=== PATIENT | female | born 1950 | race Caucasian/White ===

== ENCOUNTER 2017-11-24 07:30 | Day surgery (SDC) | payer MEDICARE, OTHER ==
[~2017-11-24] VITALS: Ht 160 cm; Wt 65.9 kg
[~2017-11-24 07:30] MED LIST: ASPI81CH; CALCA500CH PO; CHOL10002; CHOL10002 PO; CYAN1000 PO; DHEA; DHEA PO; ENOX40I SC; HRT BASE; HRT TD; HYDMOR2 PO; MONT10T PO; MULVITMIND PO; NAPR220; OMEP20ER; Omeprazole20 M1 PO; PROM25 PO; TELM20 PO; TRAZ50; VALS80 PO; VIT1CAPS12 PO; [UNRECOGNIZED DRUG - OTHER] PO
[2017-11-24] MEDS ORDERED: LOSA25 (08:04)
[2017-11-24] MEDS ORDERED: ASPI81CH (08:05)
[2017-11-24] MEDS ORDERED: MONT5TCH (08:05)
== END 2017-11-24 10:32 | disposition home or self-care (01) ==
LOC: ORSCSDS 07:30
PROVIDERS: Orthopaedic Surgery
PROC: 0LN70ZZ Release Right Hand Tendon, Open Approach (ICD-10-PCS; principal; 2017-11-24 08:45)
PROC: 01N50ZZ Release Median Nerve, Open Approach (ICD-10-PCS; principal; 2017-11-24 08:45)
DX: M65.311 Trigger thumb, right thumb (principal); G56.01 Carpal tunnel syndrome, right upper limb; I10 Essential (primary) hypertension; Z79.82 Long term (current) use of aspirin; Z79.899 Other long term (current) drug therapy
CPT/HCPCS: J0690; J2250; J3010; J7120

== ENCOUNTER 2021-12-19 08:37 | Day surgery (SDC) | payer MEDICARE, OTHER ==
[~2021-12-19] VITALS: Ht 160 cm; Wt 61.3 kg
[~2021-12-19 08:37] MED LIST changes: +ASPI81CH PO; +Carisoprodol350 MG PO; +GABA100 PO; +LOSA25 PO; +MONT5TCH PO; +NAPR500 PO; +Norvasc2.5 MG PO; +TRAZ50 PO
--- NOTE | 2021-12-19 10:58 | NUR ---
12/19/21 1058 [address] Tripathi 1G ARTURO STARTED IN PREOP AT 0948
--- NOTE | 2021-12-19 19:31 | NUR ---
SHIFT SUMMARY PATIENT NEW ADMIT TO UNIT FROM PACU POST OP DAY [address] MCCLELLAND. ALERT AND ORIENTED. SPINAL AND LOCAL BLOCK IN EFFECT ON ADMIT. WORE OFF THROUGH AFTERNOON. PATIENT ABLE TO AMBULATE WITH PHYSICAL THERAPY AND VOID. TOLERATING REGULAR DIET AND LIQUIDS. MEDICATED FOR PAIN PER EMAR. RIGHT HIP INCISIONS WITH GAUZE AND COMPRESSION TAPE C/D/I. SPOUSE ATTENTIVE IN ROOM. PLAN TO DISCHARGE HOME TOMORROW 12/20/21 AFTER CLEARING PHYSICAL THERAPY.
--- NOTE | 2021-12-20 04:34 | NUR ---
SUMMARY NO NEW ISSUES NOTED. PAIN MANAGED WELL. PT HAS BEEN AMBULATORY AND VOIDING. CALL LIGHT IN REACH AND SLEEPING WELL.
[2021-12-20 06:28] LABS: BASOPHILS ABSOLUTE AUTO 0.04 K/mm3 (0.00-0.23); BASOPHILS PERCENT AUTO 0 % (0-2); EOSINOPHILS ABSOLUTE AUTO 0.02 K/mm3 (0.00-0.68); EOSINOPHILS PERCENT AUTO 0 % (0-6); Hematocrit 29.1 % (33.0-51.0); Hemoglobin 9.5 g/dL (11.5-16.0); IMMATURE GRAN ABSOLUTE AUTO 0.04 K/mm3 (0.00-0.10); IMMATURE GRAN PERCENT AUTO 0 % (0-1); LYMPHOCYTES ABSOLUTE AUTO 1.75 K/mm3 (0.84-5.20); LYMPHOCYTES PERCENT AUTO 17 % (21-46); MONOCYTES ABSOLUTE AUTO 0.96 K/mm3 (0.16-1.47); MONOCYTES PERCENT AUTO 10 % (4-13); Mean Corpuscular HGB 29.1 pg (26.0-34.0); Mean Corpuscular HGB Conc 32.6 g/dL (31.5-36.5); Mean Corpuscular Volume 89 fL (80-100); NEUTROPHILS ABSOLUTE AUTO 7.22 K/mm3 (1.96-9.15); NEUTROPHILS PERCENT AUTO 72 % (41-73); Platelet Count 308 K/mm3 (150-400); RDW Coefficient Variation 14.4 % (11.7-14.2); RDW Standard Deviation 46.4 fL (35.1-46.3); Red Blood Cell Count 3.27 M/mm3 (3.80-5.20); White Blood Cell Count 10.03 K/mm3 (4.00-11.30)
[2021-12-20 06:56] LABS: Bun/Creatinine Ratio 24.1 (12.0-20.0); Calcium, Blood 8.5 mg/dL (8.5-10.1); Creatinine, Blood 0.58 mg/dL (0.40-1.00); Potassium, Blood 3.9 mmol/L (3.5-5.5)
[2021-12-20] MEDS ORDERED: PROM25 PO (09:45)
[2021-12-20] MEDS ORDERED: Norco 7.5-3251 EACH PO (09:46)
--- NOTE | 2021-12-20 10:27 | NUR ---
1000 discharge instructions reviewed with patient and patient in agreement with plan to discharge home. pt states she has nausea meds at home and does not want phenergan rx sent to pharmacy. pt ivone po food and fluids without nausea. ambulating with standby assist and walker. dressings supplied to patient for home use. voiding clear yellow uring. pt reports pain level of 0-1/10. pt waiting for to arrive to take her home
--- NOTE | 2021-12-20 11:42 | NUR ---
1130 DISCHARGED TO HOME WITH
== END 2021-12-20 11:30 | disposition home or self-care (01) ==
LOC: ORSCMMR 08:37 → ORD 11:00 → ORSCMMR 11:00 → SURS 13:09 → ORSCMMR 12-20 11:30
PROVIDERS: Orthopaedic Surgery
PROC: 0SR90JA Replacement of Right Hip Joint with Synthetic Substitute, Uncemented, Open Approach (ICD-10-PCS; principal; 2021-12-20)
DX: M16.11 Unilateral primary osteoarthritis, right hip (principal); I10 Essential (primary) hypertension; K21.9 Gastro-esophageal reflux disease without esophagitis; Z79.82 Long term (current) use of aspirin; Z79.899 Other long term (current) drug therapy
CPT/HCPCS: 36415; 72170; 80048; 83735; 85025; 97110; 97116; 97162; 97165; 97530; 97535; A9270; C1713; C1776; J0171; J0690; J0735; J1885; J2250; J2704; J2795; J3010; J3370; J7120

== ENCOUNTER 2021-12-20 12:21 | Emergency (ER) | payer MEDICARE, OTHER ==
[~2021-12-20] VITALS: Ht 160 cm; Wt 61.2 kg
[~2021-12-20 12:21] MED LIST changes: +Norco 7.5-3251 EACH PO
[2021-12-20 12:48] LABS: BASOPHILS ABSOLUTE AUTO 0.03 K/mm3 (0.00-0.23); BASOPHILS PERCENT AUTO 1 % (0-2); EOSINOPHILS ABSOLUTE AUTO 0.13 K/mm3 (0.00-0.68); EOSINOPHILS PERCENT AUTO 2 % (0-6); Hematocrit 27.4 % (33.0-51.0); Hemoglobin 8.9 g/dL (11.5-16.0); IMMATURE GRAN ABSOLUTE AUTO 0.02 K/mm3 (0.00-0.10); IMMATURE GRAN PERCENT AUTO 0 % (0-1); LYMPHOCYTES ABSOLUTE AUTO 1.21 K/mm3 (0.84-5.20); LYMPHOCYTES PERCENT AUTO 18 % (21-46); MONOCYTES PERCENT AUTO 2 % (4-13); Mean Corpuscular HGB 29.1 pg (26.0-34.0); Mean Corpuscular HGB Conc 32.5 g/dL (31.5-36.5); Mean Corpuscular Volume 90 fL (80-100); Mean Platelet Volume 10.3 fL (9.1-12.4); NEUTROPHILS ABSOLUTE AUTO 5.11 K/mm3 (1.96-9.15); NEUTROPHILS PERCENT AUTO 77 % (41-73); Platelet Count 284 K/mm3 (150-400); RDW Coefficient Variation 14.6 % (11.7-14.2); RDW Standard Deviation 46.4 fL (35.1-46.3); Red Blood Cell Count 3.06 M/mm3 (3.80-5.20)
[2021-12-20 13:07] LABS: Albumin, Blood 2.8 g/dL (3.4-5.0); Albumin/Globulin Ratio 1.1 (0.8-1.8); Bilirubin, Total 0.4 mg/dL (0.1-1.0); Bun/Creatinine Ratio 21.5 (12.0-20.0); Calcium, Blood 8.4 mg/dL (8.5-10.1); Creatinine, Blood 0.65 mg/dL (0.40-1.00); Globulin, Blood 2.5 g/dL (2.2-4.0); Potassium, Blood 3.4 mmol/L (3.5-5.5); Total Protein, Blood 5.3 g/dL (6.4-8.2)
== END 2021-12-20 16:22 | disposition home or self-care (01) ==
LOC: ER 12:21
PROVIDERS: Emergency Medicine
DX: D64.9 Anemia, unspecified (principal); R55 Syncope and collapse; I10 Essential (primary) hypertension; Z88.1 Allergy status to other antibiotic agents; Z79.899 Other long term (current) drug therapy; Z79.82 Long term (current) use of aspirin
CPT/HCPCS: 36415; 71045; 80053; 83880; 84484; 85025; 93005; 93010

== ENCOUNTER 2024-03-16 02:14 | Observation (INO) | payer MEDICARE, OTHER ==
[~2024-03-16] VITALS: Ht 160 cm; Wt 68.0 kg
[2024-03-16 02:35] LABS: BASOPHILS PERCENT AUTO 1 % (0-2); EOSINOPHILS ABSOLUTE AUTO 0.22 K/mm3 (0.00-0.68); EOSINOPHILS PERCENT AUTO 3 % (0-6); Hematocrit 41.3 % (33.0-51.0); IMMATURE GRAN ABSOLUTE AUTO 0.02 K/mm3 (0.00-0.10); IMMATURE GRAN PERCENT AUTO 0 % (0-1); LYMPHOCYTES ABSOLUTE AUTO 2.21 K/mm3 (0.84-5.20); LYMPHOCYTES PERCENT AUTO 27 % (21-46); MONOCYTES ABSOLUTE AUTO 0.75 K/mm3 (0.16-1.47); MONOCYTES PERCENT AUTO 9 % (4-13); Mean Corpuscular HGB 30.6 pg (26.0-34.0); Mean Corpuscular HGB Conc 33.9 g/dL (31.5-36.5); Mean Corpuscular Volume 90 fL (80-100); Mean Platelet Volume 10.7 fL (9.1-12.4); NEUTROPHILS ABSOLUTE AUTO 5.04 K/mm3 (1.96-9.15); NEUTROPHILS PERCENT AUTO 61 % (41-73); Platelet Count 301 K/mm3 (150-400); Red Blood Cell Count 4.57 M/mm3 (3.80-5.20); White Blood Cell Count 8.34 K/mm3 (4.00-11.30)
[2024-03-16] MEDS ORDERED: Pantoprazole Sodium 40 MG Injection IV ONE (02:45)
[2024-03-16] MEDS ORDERED: NS 1,000 ML IV SCH (02:45)
[2024-03-16] MEDS ORDERED: Lidocaine 2% Viscous Soln 15 ML UDC PO ONE (02:50)
[2024-03-16] MEDS ORDERED: Ondansetron HCl 2 MG / ML 2ML Vial IV ONE (02:50)
[2024-03-16] MEDS ORDERED: Mag Hydrox/AL Hydrox/Simeth 30 ML UDC PO ONE (02:50)
[2024-03-16 02:53] LABS: Alanine Aminotransfer (ALT/SGP 63 U/L (12-78); Albumin, Blood 3.6 g/dL (3.4-5.0); Albumin/Globulin Ratio 1.2 (0.8-1.8); Alk Phos 85 U/L (50-136); Anion Gap 11 mmol/L (3-11); Aspartate Aminotrans (AST/SGOT 34 U/L (12-37); Bilirubin, Total 0.8 mg/dL (0.1-1.0); Blood Urea Nitrogen 21 mg/dL (8-24); Bun/Creatinine Ratio 34.5 (12.0-20.0); CO2, Blood 25 mmol/L (21-32); Calcium, Blood 9.4 mg/dL (8.5-10.1); Chloride, Blood 107 mmol/L (98-108); Creatinine, Blood 0.61 mg/dL (0.40-1.00); Globulin, Blood 2.9 g/dL (2.2-4.0); Glomerular Filtration Rate 95 (60-); Glucose, Blood 155 mg/dL (70-99); Potassium, Blood 3.9 mmol/L (3.5-5.5); Sodium, Blood 139 mmol/L (136-145); Total Protein, Blood 6.5 g/dL (6.4-8.2)
[2024-03-16] MEDS ORDERED: FentaNYL Citrate 50 MCG/ML 2 ML Injection IV PRN (04:00)
[2024-03-16] MEDS ORDERED: Metoclopramide HCl 5MG / ML 2ML Vial IV ONE (04:35)
[2024-03-16] MEDS ORDERED: FLU VACC TS2024-25(6MOS UP)/PF 45 MCG/0.5 ML SYRINGE IM SCH (05:30)
[2024-03-16] MEDS ORDERED: Ondansetron HCl 2 MG / ML 2ML Vial IV PRN (05:30)
[2024-03-16] MEDS ORDERED: Acetaminophen 325 MG TABLET PO PRN (05:30)
[2024-03-16] MEDS ORDERED: Lactated Ringer's 1,000 ML IV SCH ×3 (06:00→19:40)
[2024-03-16 11:15] VITALS: BP 135/70
--- NOTE | 2024-03-16 11:24 | NUR ---
ARRIVAL PT ARRIVED TO UNIT FROM ER VIA WHEELCHAIR. CONNECTED TO IVF AT 100ML/HR. ABLE TO STAND AND TRANSFER TO BED WITH NO WEAKNESS. DENIES ANY NAUSEA OR PAIN AT THIS TIME. ON ROOM AIR, SPOUSE AT BEDSIDE. PROVIDED MOUTH SWABS FOR COMFORT. PT AWARE AND AGREEABLE TO NPO STATUS AT THIS TIME. CALL LIGHT PROVIDED.
[2024-03-16 16:06] VITALS: BP 129/69
--- NOTE | 2024-03-16 17:26 | NUR ---
NO ACUTE CHANGES SINCE ARRIVAL TO UNIT. PT REMAINS MINIMALLY PAINFUL. STAYING NPO. PLAN IS TO REMAIN NPO OVERNIGHT AND POSSIBLE DO A SMALL BOWEL FOLLOW THROUGH TOMORROW. PT REPORTS PASSING SOME FLATUS.
[2024-03-16 19:14] VITALS: BP 136/55
--- NOTE | 2024-03-17 04:48 | NUR ---
SHIFT SUMMARY S/P PARTIAL SBO. NO ACUTE CHANGES OVERNIGHT. VSS. NPO, DENIES N/V. VOIDING. IND IN ROOM. IV FLUIDS INFUSING PER EMAR. PT REPORTS NO PAIN T/O NIGHT, SLEPT WELL. CALL LIGHT IN REACH, BED IN LOWEST POSITION, WILL REPORT TO DAY RN.
[2024-03-17 05:07] VITALS: BP 137/64
[2024-03-17 05:52] LABS: BASOPHILS ABSOLUTE AUTO 0.06 K/mm3 (0.00-0.23); BASOPHILS PERCENT AUTO 1 % (0-2); EOSINOPHILS ABSOLUTE AUTO 0.49 K/mm3 (0.00-0.68); EOSINOPHILS PERCENT AUTO 10 % (0-6); Hematocrit 33.9 % (33.0-51.0); Hemoglobin 11.2 g/dL (11.5-16.0); IMMATURE GRAN ABSOLUTE AUTO 0.01 K/mm3 (0.00-0.10); IMMATURE GRAN PERCENT AUTO 0 % (0-1); LYMPHOCYTES ABSOLUTE AUTO 1.71 K/mm3 (0.84-5.20); LYMPHOCYTES PERCENT AUTO 34 % (21-46); MONOCYTES ABSOLUTE AUTO 0.64 K/mm3 (0.16-1.47); MONOCYTES PERCENT AUTO 13 % (4-13); Mean Corpuscular HGB 30.5 pg (26.0-34.0); Mean Corpuscular Volume 92 fL (80-100); Mean Platelet Volume 11.2 fL (9.1-12.4); NEUTROPHILS ABSOLUTE AUTO 2.11 K/mm3 (1.96-9.15); NEUTROPHILS PERCENT AUTO 42 % (41-73); Platelet Count 198 K/mm3 (150-400); RDW Coefficient Variation 13.1 % (11.7-14.2); RDW Standard Deviation 44.1 fL (35.1-46.3); Red Blood Cell Count 3.67 M/mm3 (3.80-5.20); White Blood Cell Count 5.02 K/mm3 (4.00-11.30)
[2024-03-17 06:26] LABS: Albumin, Blood 2.7 g/dL (3.4-5.0); Albumin/Globulin Ratio 1.1 (0.8-1.8); Bilirubin, Total 0.6 mg/dL (0.1-1.0); Bun/Creatinine Ratio 33.9 (12.0-20.0); Calcium, Blood 8.2 mg/dL (8.5-10.1); Creatinine, Blood 0.44 mg/dL (0.40-1.00); Globulin, Blood 2.4 g/dL (2.2-4.0); Magnesium, Blood 2.2 mg/dL (1.6-2.4); Potassium, Blood 3.9 mmol/L (3.5-5.5); Total Protein, Blood 5.1 g/dL (6.4-8.2)
[2024-03-17 07:14] VITALS: BP 134/55
[2024-03-17] MEDS ORDERED: Sodium Chloride 0.45% 1,000 ML IV SCH (12:40)
[2024-03-17 15:46] VITALS: BP 130/57
--- NOTE | 2024-03-17 16:32 | NUR ---
SHIFT SUMMARY PT HAD SBFT TODAY, HAS HAD MANY LOOSE STOOLS SINCE. PT IS INDEPENDENT IN ROOM. CONSULTED DR. SHAW REGARDING PT FEELING "DEHYDRATED", ORDER FOR CLEAR LIQUID DIET AND NS FLUID INFUSION RECIEVED. PT TOLERATING CL DIET, NO COMPLAINTS OF NAUSEA. VSS. PT CLEARED BY DR. BRISENO. PT USING CALL LIGHT APPROPRIATELY.
[2024-03-17 18:17] VITALS: BP 145/79
--- NOTE | 2024-03-17 18:39 | NUR ---
DISCHARGE NOTE PT IS INDEPENDENT IN ROOM, ALERT, VOIDING, FREQUENCY OF BMS HAS SLOWED. PT DENIES NAUSEA, TOLERATING CL, CBG 73 BEFORE DISCHARGE BUT PT REFUSED DINNER TRAY, SAYS SHE WILL EAT DINNER WHEN SHE GETS HOME. PT EDUCATED TO START W/ FULL LIQUIDS AFTER DISCHARGE AND SLOWLY ADVANCE TO REGULAR DIET. PT DENIES NAUSEA, ABD PAIN, VSS. DISCHARGE INSTRUCTIONS REVIEWED W/ PT, COPY GIVEN TO PT. PT DC'D HOME IN STABLE CONDITION W/ BELONGINGS VIA WC TO PRIVATE RIDE HOME.
== END 2024-03-17 18:38 | disposition home or self-care (01) ==
LOC: ER 02:14 → MEDS 02:15 → SURS 02:15
PROVIDERS: Emergency Medicine; ADMIT Student in an Organized Health Care Education/Training Program
DX: K56.600 Partial intestinal obstruction, unspecified as to cause (principal); I10 Essential (primary) hypertension; R73.9 Hyperglycemia, unspecified; Z79.82 Long term (current) use of aspirin; Z79.899 Other long term (current) drug therapy; Z88.1 Allergy status to other antibiotic agents; Z87.19 Personal history of other diseases of the digestive system; Z90.49 Acquired absence of other specified parts of digestive tract
CPT/HCPCS: 36415; 71045; 74174; 74250; 80053; 82947; 83690; 83735; 84484; 85025; 96361; 96374-59; 96375-59; 96376; 99285-25; A9270; G0378; J2405; J2470; J2765; J3010; J7030; J7120; Q9967

== ENCOUNTER 2024-06-08 06:18 | Emergency (ER) | payer MEDICARE, OTHER ==
[~2024-06-08] VITALS: Ht 160 cm; Wt 68.0 kg
[2024-06-08] MEDS ORDERED: NS 1,000 ML IV SCH (06:40)
[2024-06-08 06:55] LABS: BASOPHILS ABSOLUTE AUTO 0.07 K/mm3 (0.00-0.23); BASOPHILS PERCENT AUTO 1 % (0-2); EOSINOPHILS ABSOLUTE AUTO 0.32 K/mm3 (0.00-0.68); EOSINOPHILS PERCENT AUTO 6 % (0-6); Hematocrit 39.6 % (33.0-51.0); Hemoglobin 13.2 g/dL (11.5-16.0); IMMATURE GRAN ABSOLUTE AUTO 0.02 K/mm3 (0.00-0.10); IMMATURE GRAN PERCENT AUTO 0 % (0-1); LYMPHOCYTES ABSOLUTE AUTO 1.13 K/mm3 (0.84-5.20); LYMPHOCYTES PERCENT AUTO 21 % (21-46); MONOCYTES PERCENT AUTO 11 % (4-13); Mean Corpuscular HGB 30.6 pg (26.0-34.0); Mean Corpuscular HGB Conc 33.3 g/dL (31.5-36.5); Mean Corpuscular Volume 92 fL (80-100); Mean Platelet Volume 10.4 fL (9.1-12.4); NEUTROPHILS ABSOLUTE AUTO 3.32 K/mm3 (1.96-9.15); NEUTROPHILS PERCENT AUTO 61 % (41-73); Platelet Count 227 K/mm3 (150-400); RDW Coefficient Variation 12.5 % (11.7-14.2); RDW Standard Deviation 42.5 fL (35.1-46.3); Red Blood Cell Count 4.32 M/mm3 (3.80-5.20); White Blood Cell Count 5.46 K/mm3 (4.00-11.30)
[2024-06-08 07:24] LABS: Albumin, Blood 3.2 g/dL (3.4-5.0); Albumin/Globulin Ratio 1.3 (0.8-1.8); Bilirubin, Total 0.6 mg/dL (0.1-1.0); Bun/Creatinine Ratio 39.8 (12.0-20.0); Calcium, Blood 8.4 mg/dL (8.5-10.1); Creatinine, Blood 0.58 mg/dL (0.40-1.00); Globulin, Blood 2.4 g/dL (2.2-4.0); Total Protein, Blood 5.6 g/dL (6.4-8.2)
[2024-06-08 07:57] LABS: Source, Urine Clean Catch
[2024-06-08 08:09] LABS: Appearance, Urine Clear (Clear); Bilirubin, Urine Neg (Neg); Blood, Urine Neg (Neg); Color, Urine Yellow (P-Yellow); Glucose Qualitative, Urine Neg (Neg); Ketones, Urine Neg (Neg); Leukocyte Esterase, Urine Neg (Neg); Nitrite, Urine Neg (Neg); Protein, Urine 1+ (Neg); Urobilinogen, Urine NORM (Normal)
[2024-06-08] MEDS ORDERED: LOPE2C PO (08:55)
[2024-06-08 09:00] VITALS: BP 135/75
[2024-06-08] MEDS ORDERED: Loperamide HCl 2 MG Cap PO ONE (09:20)
== END 2024-06-08 09:20 | disposition home or self-care (01) ==
LOC: ER 06:18
PROVIDERS: Emergency Medicine
DX: K52.9 Noninfective gastroenteritis and colitis, unspecified (principal); I10 Essential (primary) hypertension; Z88.1 Allergy status to other antibiotic agents; Z79.82 Long term (current) use of aspirin; Z79.899 Other long term (current) drug therapy
CPT/HCPCS: 74177; 80053; 85025; 96360-59; 99284-25; A9270; J7030; Q9967

== ENCOUNTER 2024-06-13 18:43 | Emergency (ER) | payer MEDICARE, OTHER ==
[~2024-06-13] VITALS: Ht 167.6 cm; Wt 72.6 kg
[~2024-06-13 18:43] MED LIST changes: +LOPE2C PO
[2024-06-13] MEDS ORDERED: Morphine Sulfate 4 MG/1 ML Injection IV ONE (19:00)
[2024-06-13] MEDS ORDERED: Ondansetron HCl 2 MG / ML 2ML Vial IV ONE (19:00)
[2024-06-13 19:48] LABS: BASOPHILS ABSOLUTE AUTO 0.09 K/mm3 (0.00-0.23); BASOPHILS PERCENT AUTO 1 % (0-2); EOSINOPHILS ABSOLUTE AUTO 0.32 K/mm3 (0.00-0.68); EOSINOPHILS PERCENT AUTO 4 % (0-6); Hematocrit 39.4 % (33.0-51.0); Hemoglobin 13.4 g/dL (11.5-16.0); IMMATURE GRAN ABSOLUTE AUTO 0.02 K/mm3 (0.00-0.10); IMMATURE GRAN PERCENT AUTO 0 % (0-1); LYMPHOCYTES ABSOLUTE AUTO 1.45 K/mm3 (0.84-5.20); LYMPHOCYTES PERCENT AUTO 18 % (21-46); MONOCYTES ABSOLUTE AUTO 0.88 K/mm3 (0.16-1.47); MONOCYTES PERCENT AUTO 11 % (4-13); Mean Corpuscular HGB 30.7 pg (26.0-34.0); Mean Corpuscular Volume 90 fL (80-100); Mean Platelet Volume 10.2 fL (9.1-12.4); NEUTROPHILS ABSOLUTE AUTO 5.24 K/mm3 (1.96-9.15); NEUTROPHILS PERCENT AUTO 66 % (41-73); Platelet Count 259 K/mm3 (150-400); RDW Standard Deviation 43.1 fL (35.1-46.3); Red Blood Cell Count 4.37 M/mm3 (3.80-5.20)
[2024-06-13 19:56] LABS: Albumin, Blood 3.2 g/dL (3.4-5.0); Albumin/Globulin Ratio 1.1 (0.8-1.8); Bilirubin, Total 0.7 mg/dL (0.1-1.0); Bun/Creatinine Ratio 35.2 (12.0-20.0); Calcium, Blood 9.4 mg/dL (8.5-10.1); Creatinine, Blood 0.6 mg/dL (0.40-1.00); Globulin, Blood 2.9 g/dL (2.2-4.0); Potassium, Blood 4.4 mmol/L (3.5-5.5); Total Protein, Blood 6.1 g/dL (6.4-8.2)
[2024-06-13 21:00] VITALS: BP 130/62
[2024-06-13] MEDS ORDERED: ONDA4ODT MM (22:00)
[2024-06-13] MEDS ORDERED: HYOS.125 PO (22:00)
[2024-06-13] MEDS ORDERED: RX Prepack 2 Tabs Ondansetron ODT 4MG UD ONE (22:00)
== END 2024-06-13 22:19 | disposition home or self-care (01) ==
LOC: ER 18:43
PROVIDERS: Student in an Organized Health Care Education/Training Program
DX: R10.10 Upper abdominal pain, unspecified (principal); K63.89 Other specified diseases of intestine; I10 Essential (primary) hypertension; Z79.82 Long term (current) use of aspirin; Z79.899 Other long term (current) drug therapy
CPT/HCPCS: 74177; 80053; 83690; 85025; 96374-59; 96375; 99284-25; A9270; J2270; J2405; Q9967

== ENCOUNTER 2024-08-21 13:17 | Emergency (ER) | payer MEDICARE, OTHER ==
[~2024-08-21] VITALS: Ht 160 cm; Wt 63.5 kg
[~2024-08-21 13:17] MED LIST changes: +HYOS.125 PO; +ONDA4ODT MM
[2024-08-21 16:56] VITALS: BP 153/69
== END 2024-08-21 16:56 | disposition home or self-care (01) ==
LOC: ER 13:17
DX: R55 Syncope and collapse (principal); K56.609 Unspecified intestinal obstruction, unspecified as to partial versus complete obstruction; K57.30 Diverticulosis of large intestine without perforation or abscess without bleeding; R10.9 Unspecified abdominal pain; J98.11 Atelectasis; I70.0 Atherosclerosis of aorta; Z90.49 Acquired absence of other specified parts of digestive tract; Z96.643 Presence of artificial hip joint, bilateral
CPT/HCPCS: 74177; 80053; 83690; 85025; 93005; 93010; 99284-25; Q9967

== ENCOUNTER → 2024-08-23 | Outpatient (CLI) | payer MEDICARE ==
[2024-08-25 13:10] LABS: FAT, FECAL - NEUTRAL Normal (Normal); FAT, FECAL - SPLIT Normal (Normal)
[2024-08-26 11:32] LABS: PANCREATIC ELASTASE,FECAL 589 ug/g (>=100)
[2024-08-26 14:58] LABS: CALPROTECTIN,FECAL 694 ug/g (<=49)
== END ==
LOC: LAB SHORT 13:48 → LAB 13:48
PROVIDERS: Family Medicine
DX: R10.84 Generalized abdominal pain (principal)
CPT/HCPCS: 82653; 82705; 83993; 87338

== ENCOUNTER 2024-10-19 07:57 | Day surgery (SDC) | payer MEDICARE, OTHER ==
[2024-10-19] VITALS (16 sets, daily range): BP systolic 116–148; BP diastolic 59–84
[~2024-10-19] VITALS: Ht 160 cm; Wt 64.2 kg
[~2024-10-19 07:57] MED LIST changes: +ALEN70 PO; +ESCI20 PO
--- NOTE | 2024-10-19 08:38 | NUR ---
Ambulatory in Day Surgery WITH STEADY GAIT. History, Chart, Medications and Allergies reviewed before start of procedure. Pre-Op teaching done. Pt verbalizes understanding. Patient States Post-Procedure ride home has been arranged WITH SPOUSE.
--- NOTE | 2024-10-19 09:18 | NUR ---
10/19/24 0918 Patricia Mcgill CONFIRMED AND REVIEWED H&P, MEDCICATIONS, ALLERGIES, MEDICAL HISTORY, RESPIRATORY HISTORY, VITAL SIGNS, 3-LEAD EKG, CONSENTS, AND PHYSICIAN ORDERS. PATIENT CONFIRMS NPO STATUS AND AGREES WITH SCHEDULED PROCEDURE. MONITOR INTACT WITH CONTINUOUS PULSE OXIMETRY, CAPNOGRAPHY, 3-LEAD EKG, INTERMITTENT BP. SUPPLEMENTAL O2 TO BE TITRATED THROUGHOUT PROCEDURE TO MAINTAIN O2 SATURATION ABOVE 90%. PATIENT DETERMINED TO BE ASA APPROPRIATE FOR PROPOFOL SEDATION PRIOR TO START OF PROCEDURE BY DR. BRISENO.MALLAMPATI CLASS 2 AIRWAY: COMPLETE VISUALIZATION OF THE UVULA.
--- NOTE | 2024-10-19 10:04 | NUR ---
Discharge instructions reviewed with patient. Patient verbalizes understanding. Copy given to patient to take home. Patient States Post-Procedure ride home has been arranged. Discharged via wheelchair to private car for ride home.
== END 2024-10-19 10:05 | disposition home or self-care (01) ==
LOC: ORSCMMR 07:57 → ORSCSDS 09:15 → ORD 09:15 → ORSCMMR 10:05
PROVIDERS: Surgery
PROC: 0DJD8ZZ Inspection of Lower Intestinal Tract, Via Natural or Artificial Opening Endoscopic (ICD-10-PCS; principal; 2024-10-19 09:15)
DX: Z12.11 Encounter for screening for malignant neoplasm of colon (principal); K57.30 Diverticulosis of large intestine without perforation or abscess without bleeding; Z87.19 Personal history of other diseases of the digestive system; K21.9 Gastro-esophageal reflux disease without esophagitis; I10 Essential (primary) hypertension; E78.5 Hyperlipidemia, unspecified; Z79.899 Other long term (current) drug therapy
CPT/HCPCS: J2704; J7120